=== PATIENT | female | born 1995 | race Caucasian/White ===

== ENCOUNTER 2023-05-28 19:39 | Emergency (ER) | payer OTHER ==
[~2023-05-28] VITALS: Ht 162.6 cm; Wt 106.6 kg
[2023-05-28 19:41] VITALS: BP_SYST 156; PULSE 102; RESP 24; TEMP 98; O2SAT 98
[2023-05-28 21:08] LABS: BASOPHILS % (AUTO) 0.1 % (0.0-2.0); CALCIUM 8.3 mg/dL (8.4-11.0); CREATININE 0.91 mg/dL (0.55-1.30); EOSINOPHILS % (AUTO) 0.5 % (0.0-4.0); HEMATOCRIT 35.1 % (36-48); HEMOGLOBIN 12.4 g/dL (12.0-16.0); LYMPHOCYTES # (AUTO) 1.3 K/uL (1.0-5.5); LYMPHOCYTES % (AUTO) 13.2 % (20.5-51.5); MEAN CORPUSCULAR HEMOGLOBIN 31 pg (27-31); MEAN CORPUSCULAR HGB CONC 35 % (32-36); MEAN CORPUSCULAR VOLUME 89 fL (79.0-98.0); MONOCYTES # (AUTO) 0.6 K/uL (0.0-1.0); MONOCYTES % (AUTO) 6.7 % (1.7-9.3); NEUTROPHILS # (AUTO) 7.7 K/uL (1.8-7.7); NEUTROPHILS % (AUTO) 79.5 % (40.0-70.0); PLATELET COUNT (AUTO) 220 K/uL (130-430); POTASSIUM 3.9 mmol/L (3.5-5.1); RED BLOOD CELL COUNT(AUTO) 3.96 MIL/uL (4.2-6.2); RED CELL DISTRIBUTION WIDTH 12.6 % (9.0-15.0); WHITE BLOOD COUNT (AUTO) 9.6 K/uL (4.8-10.8)
[2023-05-28 21:13] LABS: ALBUMIN 2.8 g/dL (3.4-4.8); INR 0.9 (0.8-1.2); PROTHROMBIN TIME 9.8 SECS (9.5-12.5); TOTAL BILIRUBIN 0.4 mg/dL (0.0-1.0)
[2023-05-28] MEDS ORDERED: ACETAMINOPHEN 500 MG TABLET PO ONE (21:15)
[2023-05-28] MEDS ORDERED: NACL 0.9% 1,000 ML IV ONE (21:15)
[2023-05-28 21:42] LABS: BILIRUBIN,URINE NEGATIVE (NEGATIVE); BLOOD, URINE NEGATIVE (NEGATIVE); COLOR,URINE YELLOW (YELLOW); GLUCOSE,URINE NEGATIVE (NEGATIVE); KETONES,URINE NEGATIVE (NEGATIVE); LEUKOCYTE ESTERASE ,URINE 1+ (NEGATIVE); NITRITE, URINE NEGATIVE (NEGATIVE); PROTEIN URINE TRACE (NEGATIVE)
[2023-05-28 21:47] LABS: UROBILINOGEN,URINE >=8 (0.2-1.0)
[2023-05-28 21:48] LABS: CLARITY/URINE SLIGHTLY HAZY (CLEAR)
[2023-05-28 22:09] LABS: BACTERIA,URINE FEW /HPF (None Seen); CALCIUM OXALATE CRYSTALS,UR 0-10 /HPF (None Seen); RBC,URINE 0-3 /HPF (0-3)
[2023-05-29] MEDS ORDERED: cefTRIAXone 1 GM IVPB PREMIX 50 ML IV ONE (01:00)
[2023-05-29] MEDS ORDERED: MORPHINE 4 MG INJ. 4 MG/ML VIAL IVP ONE ×2 (01:30→01:45)
[2023-05-29] MEDS ORDERED: ACETAMINOPHEN 500 MG TABLET PO ONE (01:30)
[2023-05-29] MEDS ORDERED: ONDANSETRON HCL 4 MG/2 ML VIAL IVP ONE (02:00)
[2023-05-29] MEDS ORDERED: NITR-85 PO (02:12)
[2023-05-29] MEDS ORDERED: MOM PO (02:12)
[2023-05-29 02:27] VITALS: BP_SYST 144; PULSE 95; RESP 18; TEMP 97.6; O2SAT 97
== END 2023-05-29 02:27 | disposition home or self-care (01) ==
LOC: SED 19:39
DX: O99.613 Diseases of the digestive system complicating pregnancy, third trimester (principal); K92.9 Disease of digestive system, unspecified; Z3A.28 28 weeks gestation of pregnancy; Z79.899 Other long term (current) drug therapy
CPT/HCPCS: 99285; 96361; 76700; 76805; 80053; 81000; 85025; 85610; 85730; 87040; 87086; 36415; 83605; 96365; 96375; J7030; J0696; J2405; J2270